=== PATIENT | male | born 1965 | race Caucasian/White ===

== ENCOUNTER 2019-04-13 06:39 | Outpatient (RCR) | payer OTHER, SELFPAY | END 2019-04-13 23:00 | disposition home or self-care (01) | LOC: SPT 06:39 | PROVIDERS: PCP Family Medicine; Referring Provider Family Medicine; Visit Provider Family Medicine | DX: M25.561 Pain in right knee (principal); R26.81 Unsteadiness on feet; M54.9 Dorsalgia, unspecified | CPT/HCPCS: 97750 ==

== ENCOUNTER 2021-05-24 17:02 | Outpatient (CLI) | payer OTHER, SELFPAY ==
--- NOTE | 2021-05-24 17:22 | XR_ITS ---
WS: [email or web address] Exam: XR chest 2V* [id number] Date/Time of Exam: 05/24/2021 5:24 PM Reason For Exam: SHORT OF BREATH Comparison 12/08/2018. Findings: The lungs are clear and fully expanded. Costophrenic angles are sharp. No infiltrates. Bronchovascula r relief appears normal. Cardiac silhouette is unremarkable. Bony elements are intact. XR/XR chest 2V* [id number] IMPRESSION: Unremarkable chest radiograph.
== END 2021-05-24 17:03 | disposition home or self-care (01) ==
PROVIDERS: PCP Nurse Practitioner Family; Visit Provider Nurse Practitioner Family
DX: R06.02 Shortness of breath (principal)
CPT/HCPCS: 71046

== ENCOUNTER 2022-07-16 08:08 | Outpatient (CLI) | payer OTHER, SELFPAY ==
--- NOTE | 2022-07-16 08:17 | XR_ITS ---
WS: [email or web address] Right hip, 2 views, AP pelvis, 07/16/2022 Clinical Data: R HIP PAIN Comparison: None. Findings: No fractures or dislocations are seen. The right hip shows no erosion, sclerosis, narrowing, cyst for mation or fragmentation of the right femoral head. There are calcifications adjacent to the lesser tr ochanter in the soft tissue of the thigh, probably from an old injury. The left hip is normal. The so ft tissues are not remarkable. The adjacent pelvis is normal. XR/XR hip RT 2-3V wo/w pel* [id number] Impression: Negative pelvis and right hip Tonnis classification: grade 0: normal radiographs of the hips
--- NOTE | 2022-07-16 08:17 | XR_ITS ---
WS: [email or web address] Lumbar spine, 3 views, 07/16/2022 Clinical Data: LUMBAR PAIN Comparison: Lumbar spine, 02/14/2015 Findings: No compression fractures or subluxation is seen. No disc space narrowing is seen. There are osteophyt es of all the lumbar vertebral bodies. The transverse processes and SI joints are normal. XR/XR lumbar spine 2-3V* [id number] Impression: Osteophytes of L1-L5 vertebral bodies
== END 2022-07-16 08:09 | disposition home or self-care (01) ==
LOC: RAD 08:09
PROVIDERS: PCP Nurse Practitioner Family; Visit Provider Nurse Practitioner Family
DX: M25.551 Pain in right hip (principal); M54.50 Low back pain, unspecified; M25.78 Osteophyte, vertebrae
CPT/HCPCS: 72100; 73502

== ENCOUNTER 2022-07-24 08:22 | Outpatient (CLI) | payer OTHER, SELFPAY ==
--- NOTE | 2022-07-24 08:29 | XR_ITS ---
WS: [email or web address] Exam: XR thoracic spine 2V [id number] Date/Time of Exam: 07/24/2022 8:31 AM Reason For Exam: ACUTE THORACIC BACK PAIN Comparison 11/19/2018. No acute fracture or dislocation noted. There is spondylosis. Slight dextroscoliosis. Normal paraspin al soft tissues. XR/XR thoracic spine 2V [id number] IMPRESSION: 1. Degenerative changes and slight scoliosis. 2. No fracture or malalignment.
--- NOTE | 2022-07-24 08:29 | XR_ITS ---
WS: [email or web address] Exam: XR cervical spine 3V* [id number] Date/Time of Exam: 07/24/2022 8:31 AM Reason For Exam: CERVICALGIA Comparison 11/19/2018. No fracture or dislocation involving the upper 5 cervical vertebra. C6 and C7 incompletely visualized in the lateral view. Anterior cervical soft tissues appear normal. The odontoid is unremarkable. Mil d facet DJD. Mild spondylosis at C5. XR/XR cervical spine 3V* [id number] IMPRESSION: 1. No fracture or malalignment involving the upper 5 cervical vertebra. Mild de generative changes visualized.
== END 2022-07-24 08:23 | disposition home or self-care (01) ==
PROVIDERS: PCP Nurse Practitioner Family; Visit Provider Nurse Practitioner Family
DX: M47.812 Spondylosis without myelopathy or radiculopathy, cervical region (principal); M47.817 Spondylosis without myelopathy or radiculopathy, lumbosacral region
CPT/HCPCS: 72040; 72070

== ENCOUNTER 2024-04-22 07:15 | Outpatient (CLI) | payer OTHER, SELFPAY ==
--- NOTE | 2024-04-22 07:28 | XR_ITS ---
WS: [email or web address] Left ankle, AP and lateral views, 04/22/2024 Clinical Data: L LATERAL ANKLE PAIN Comparison: None. Findings: No fractures or dislocations are seen. The ankle mortise is normal. The talus and calcaneus are unremarkable. No soft tissue swelling over the medial or lateral malleolus is seen. There is a plantar spur. XR/XR ankle LT 2V [id number] Impression: Negative left ankle.
== END 2024-04-22 07:16 | disposition home or self-care (01) ==
PROVIDERS: PCP Nurse Practitioner Family; Visit Provider Nurse Practitioner Family
DX: M25.572 Pain in left ankle and joints of left foot (principal); M77.32 Calcaneal spur, left foot
CPT/HCPCS: 73600

== ENCOUNTER 2024-06-28 07:12 | Outpatient (CLI) | payer OTHER, SELFPAY ==
--- NOTE | 2024-06-28 08:05 | XR_ITS ---
WS: [email or web address] XR cervical spine 3V* [id number] REASON FOR EXAM: CERVICALGIA FINDINGS: Mild anterior subluxation of the cervical spine. Mild straightening of the normal lordosis. Normal odontoid and no significant vertebral body abnormality. Moderate narrowing of the C5-C6 joint space with moderate anterior and posterior osteophytosis. Similar findings at C6-C7. 2 mm of anterior subluxation of C4 on C5. Calcification in the soft tissue of the left neck. Cervical spine relatively stable compared to 07/24/2022 XR/XR cervical spine 3V* [id number] IMPRESSION: Stable cervical spine with degenerative spondylosis and anterior subluxation as above. Probable calcified plaque in the left internal carotid artery.
== END 2024-06-28 07:13 | disposition home or self-care (01) ==
PROVIDERS: PCP Nurse Practitioner Family; Visit Provider Nurse Practitioner Family
DX: M47.892 Other spondylosis, cervical region (principal); R93.89 Abnormal findings on diagnostic imaging of other specified body structures; S13.150A Subluxation of C4/C5 cervical vertebrae, initial encounter; X58.XXXA Exposure to other specified factors, initial encounter; M48.02 Spinal stenosis, cervical region; M25.78 Osteophyte, vertebrae; M79.89 Other specified soft tissue disorders
CPT/HCPCS: 72040

== ENCOUNTER 2024-07-15 07:30 | Outpatient (CLI) | payer OTHER, SELFPAY ==
--- NOTE | 2024-07-15 10:15 | MR_ITS ---
WS: [email or web address] MRI CERVICAL SPINE NONCONTRAST HISTORY: NECK PAIN, CERVICAL SPONDYLOSIS, CERVICAL RADICULOPATHY COMPARISON: None available. Technique: Multiplanar, multisequence noncontrast imaging of the cervical spine. Straightening and slight reversal of the normal cervical lordosis centered at C5-6. Signal within the cervical cord is normal. Visualized posterior fossa is unremarkable. Craniocervical junction, C1 and C2 relationship, odontoid process and soft tissues are normal. C2-C3: Small RIGHT foraminal osteophytes resulting in mild stenosis. C3-C4: Small bilateral foraminal osteophytes and facet arthritis. Mild bilateral foraminal stenosis. C4-C5: Normal. C5-C6: Annular disc bulging with a central disc protrusion. Bilateral foraminal disc osteophyte complexes. Effacement of ventral CSF with deformity of the cord. Moderate to severe central and bilateral foraminal stenosis, greater stenosis on the RIGHT. C6-C7: Moderate central to LEFT paracentral disc protrusion with annular disc bulging and osteophytosis. Bilateral facet arthritis. Moderate to severe central and bilateral foraminal stenosis. C7-T1: Mild osteophytic ridging. Very mild bilateral foraminal stenosis. Paraspinal soft tissue are normal. MR/MR cervical spin wo con* [id number] IMPRESSION: 1. Straightening and reversal of normal cervical lordosis centered at C5-6. 2. Moderate to severe central and bilateral foraminal stenosis due to disc ost eophyte complexes at C5-6 and C6-7. 3. Mild foraminal stenosis at C3-4 and C6-7 and on the RIGHT at C2-3 predomina ntly due to osteophyte disease.
== END 2024-07-15 07:31 | disposition home or self-care (01) ==
PROVIDERS: PCP Nurse Practitioner Family; Visit Provider Surgery
DX: M47.812 Spondylosis without myelopathy or radiculopathy, cervical region (principal); M54.12 Radiculopathy, cervical region; R93.7 Abnormal findings on diagnostic imaging of other parts of musculoskeletal system; M48.02 Spinal stenosis, cervical region; M25.78 Osteophyte, vertebrae; M47.892 Other spondylosis, cervical region; M50.323 Other cervical disc degeneration at C6-C7 level; M50.223 Other cervical disc displacement at C6-C7 level; M50.222 Other cervical disc displacement at C5-C6 level; M48.03 Spinal stenosis, cervicothoracic region
CPT/HCPCS: 72141

== ENCOUNTER 2024-12-28 07:15 | Outpatient (CLI) | payer OTHER, SELFPAY ==
--- NOTE | 2024-12-28 07:34 | XR_ITS ---
WS: [email or web address] Cervical spine, 4 views, 12/28/2024 Clinical Data: CERVICAL SPONDYLOSIS Comparison: Cervical spine, 06/28/2024 Findings: No compression fractures are seen. The disc heights are normal. There is an anterior cervical disc fusion at C5-C7 with corresponding disc spacers at C5-C6 and C6-C7. There is no prevertebral soft tissue swelling. The odontoid is unremarkable. The soft tissues of the neck show minimal calcification at the left carotid bifurcation XR/XR cervical spine 3V* [id number] Impression: Anterior cervical disc fusion C5-C7.
== END 2024-12-28 07:16 | disposition home or self-care (01) ==
PROVIDERS: PCP Nurse Practitioner Family; Visit Provider Nurse Practitioner Family
DX: M47.812 Spondylosis without myelopathy or radiculopathy, cervical region (principal); M43.22 Fusion of spine, cervical region
CPT/HCPCS: 72040